=== PATIENT | female | born 1995 | race Two or more races ===

== ENCOUNTER 2023-01-26 16:29 | Emergency (ER) | payer MEDICAID, OTHER ==
[~2023-01-26] VITALS: Ht 170.2 cm; Wt 191.0 kg
[2023-01-26] MEDS ORDERED: DexAMETHasone SOD PHOS 10MG/1ML VIAL INJ IM ONE (18:30)
[2023-01-26] MEDS ORDERED: KETOROLAC TROMETH 60MG/2ML VIAL IM ONE (18:30)
[2023-01-26] MEDS ORDERED: IBUP1TAB5 PO (18:34)
[2023-01-26] MEDS ORDERED: CYCL-839 PO (18:34)
[2023-01-26 18:52] VITALS: BP 135/76; PULSE 88; RESP 18; TEMP 97.9; O2SAT 94
== END 2023-01-26 19:05 | disposition home or self-care (01) ==
LOC: ER 16:29
DX: S76.012A Strain of muscle, fascia and tendon of left hip, initial encounter (principal); Z79.1 Long term (current) use of non-steroidal anti-inflammatories (NSAID); Z79.899 Other long term (current) drug therapy; X58.XXXA Exposure to other specified factors, initial encounter; Y93.89 Activity, other specified; Y92.89 Other specified places as the place of occurrence of the external cause; Y99.8 Other external cause status
CPT/HCPCS: 73502; 93971; 96372; 99285; J1100; J1885

== ENCOUNTER 2023-10-23 18:53 | Emergency (ER) | payer MEDICAID ==
[~2023-10-23] VITALS: Ht 170.2 cm; Wt 183.5 kg
[~2023-10-23 18:53] MED LIST: CYCL-839 PO; IBUP1TAB5 PO
[2023-10-23 19:55] VITALS: BP 134/85; PULSE 117; RESP 18; O2SAT 95
[2023-10-23] MEDS ORDERED: AMOX875T4 PO (23:32)
[2023-10-23] MEDS ORDERED: ACET500T58 PO (23:32)
[2023-10-23] MEDS: ACETAMINOPHEN 325 MG TAB PO ONE (23:33)
[2023-10-23 23:52] LABS: Urine Bacteria FEW /hpf (None Seen); Urine Blood 3+ /uL (Negative); Urine Clarity Turbid (Clear); Urine Color Colorless (Yellow); Urine Protein, UAD Negative (Negative); Urine Specific Gravity 1.005 (1.001-1.035); Urine Urobilinogen Normal (Negative); Urine WBC 2 /hpf (0 - 5)
== END 2023-10-24 00:03 | disposition home or self-care (01) ==
LOC: ER 18:53
DX: J01.90 Acute sinusitis, unspecified (principal); R51.9 Headache, unspecified; E66.01 Morbid (severe) obesity due to excess calories; Z68.44 Body mass index [BMI] 60.0-69.9, adult
CPT/HCPCS: 81001; 81025

== ENCOUNTER 2025-03-06 11:33 | Emergency (ER) | payer MEDICAID ==
[~2025-03-06] VITALS: Ht 170.2 cm; Wt 187.8 kg
[~2025-03-06 11:33] MED LIST changes: +ACET500T58 PO; +AMOX875T4 PO
--- NOTE | 2025-03-06 14:24 | ED.PDOC ---
Musculoskeletal HPI Comments A 30 YEAR OLD FEMALE PRESENTS TO THE ED WITH COMPLAINT OF LEFT ARM SORENESS THAT STARTED 3-4 DAYS AGO. PATIENT REPORTS CARRYING HER NIECE FREQUENTLY FEELING SIMILAR SORENESS AFTER BUT WOULD SUBSIDE THE SAME DAY. PATIENT HAS NO SWELLING, ERYTHEMA, RECENT INJURIES OR FALLS PERTAINING TO PAIN. PATIENT DENIES FEVER, CHILLS, SHORTNESS OF BREATH, CHEST PAIN, ABDOMINAL PAIN, NAUSEA, VOMITING, HEADACHE, OR OTHER COMPLAINTS. NO OTHER SYMPTOMS OR MODIFYING FACTORS AT THIS TIME. PATIENT IS ALERT, ORIENTED X 4, AND HAS STEADY GAIT. Chief Complaint: Upper Extremity Time Seen by MD: 14:15 Primary Care Provider: AALIYAH Reviewed Notes: Nurses Notes, Medications, Allergies Allergies: Coded Allergies: NO KNOWN ALLERGIES (Unverified , 01/26/23) Home Meds Active Scripts Acetaminophen (Acetaminophen) 500 Mg Tab, 500 MG PO Q4HPRN, #30 TAB 0 Refills Prov:MATT GOOD 10/23/23 Amoxicillin & Pot Clavulanate (Amoxicillin/Potassium Cla) 875 Mg Tab, 1 TAB PO BID for 7 Days, #14 TAB 0 Refills Prov:MATT GOOD 10/23/23 Cyclobenzaprine Hcl (Cyclobenzaprine Hcl) 10 Mg Tab, 1 TAB PO Q8HR, #15 TAB as needed for muscle spasm Prov:KAYLA ROBERTSON NP 01/26/23 Ibuprofen Micronized (Ibuprofen) 600 Mg Tab, 1 TAB PO Q6HR, #20 TAB as needed for pain Prov:KAYLA ROBERTSON NP 01/26/23 Information Source: Patient Mode of Arrival: Ambulatory Location: Left Extremity Location: Arm Timing: Days Severity: Moderate Pain: Moderate Hand Dominance: Right Circumstances: Spontaneous Onset of Symptoms: Spontaneous Symptoms: Pain DVT Risk Factors: NONE Last Tetanus: UTD Associated signs and symptoms: Arm pain, Forearm pain Past Medical History PAST MEDICAL HISTORY: Anxiety Surgical History: Denies all surgeries PALLETISER OPERATOR History: No Pertinent PALLETISER OPERATOR History Family History Family History: Unknown Social History Smoker: Non-Smoker Alcohol: Denies ETOH Use Drugs: Denies Drug Use Lives In: Home Constitutional: denies: chills, diaphoresis, fatigue, fever, malaise, sweats, weakness, others EENTM: denies: blurred vision, double vision, ear bleeding, ear discharge, ear drainage, ear pain, ear ringing, eye pain, eye redness, hearing loss, mouth pain, mouth swelling, nasal discharge, nose bleeding, nose congestion, nose pain, photophobia, tearing, throat pain, throat swelling, voice changes, others Respiratory: denies: cough, hemoptysis, orthopnea, SOB at rest, shortness of breath, SOB with excertion, stridor, wheezing, others Cardiovascular: denies: chest pain, dizzy spells, diaphoresis, Dyspnea on exertion, edema, irregular heart beat, left arm pain, lightheadedness, palpitations, PND, syncope, others Gastrointestinal: denies: abdomen distended, abdominal pain, blood streaked bowels, constipated, diarrhea, dysphagia, difficulty swallowing, hematemesis, melena, nausea, poor appetite, poor fluid intake, rectal bleeding, rectal pain, vomiting, others Genitourinary: denies: abnormal vagina bleeding, burning, dyspareunia, dysuria, flank pain, frequency, hematuria, incontinence, pain, , vagina discharge, urgency, others Neurological: denies: dizziness, fainting, headache, left sided numbness, left sided weakness, numbness, paresthesia, pre-existing deficit, right sided numbness, right sided weakness, seizure, speech problems, tingling, tremors, weakness, others Musculoskeletal: reports: muscle pain, others (LEFT ARM PAIN ); denies: back pain, gout, joint pain, joint swelling, muscle stiffness, neck pain Integumetry: denies: bruises, change in color, change in hair/nails, dryness, laceration, lesions, lumps, rash, wounds, others Allergic/Immunocompromised: denies: Difficulty Healing, Frequent Infections, Hives, Itching, others Hematologic/Lymphatic: denies: anemia, blood clots, easy bleeding, easy bruising, swollen glands, others Endocrine: denies: excessive hunger, excessive sweating, excessive thirst, excessive urination, flushing, intolerance to cold, intolerance to heat, unexplained weight gain, unexplained weight loss, others Psychiatric: denies: anxiety, bipolar disorder, depression, hopeless, panic disorder, schizophrenia, sleepless, suicidal, others All Other Systems: Reviewed and Negative Physical Exam General Appearance: No Apparent Distress, Obese HEENT: Normal ENT Inspection, PERRL/EOMI, Pharynx Normal, TMs Normal Neck: Full Range of Motion, Non-Tender, Normal, Normal Inspection Respiratory: Chest Non-Tender, Lungs Clear, No Accessory Muscle Use, No Respiratory Distress, Normal Breath Sounds Cardiovascular: No Edema, No JVD, No Murmur, No Gallop, Normal Peripheral Pulses, Regular Rate/Rhythm Breast Exam: Deferred Gastrointestinal: No Organomegaly, Non Tender, No Pulsatile Mass, Normal Bowel Sounds, Soft Genitalia: Deferred Pelvic: Deferred Rectal: Deferred Extremities: No calf tenderness, Normal capillary refill, Normal inspection, Normal range of motion, No pedal edema, Tender (AND TENDERNESS ON LEFT UPPER EXTREMITY, NO BONY TENDERNESS, SWELLING AND DVT SIGNS. NORMAL ROM. ) Musculoskeletal : Apperance: Normal Neurologic: Alert, supervisor extruding department II-XII nml as Tested, No Motor Deficits, Normal Affect, Normal Mood, No Sensory Deficits Cerebellar Function: Normal Reflexes: Normal Skin: Dry, Normal Color, Warm Peripheral Pulses: 2+ carotid (R), 2+ carotid (L), 2+ Radial (R), 2+ Radial (L) Lymphatic: No Adenopathy Was a procedure done? Was a procedure done?: No EKG EKG : Pulse Rate (adult): 82 Cardiac Rhythm: NSR Differential Diagnosis EXT Differential Diagnosis: Deep Vein Thrombosis, Sprain, Strain, Bursitis X-Ray, Labs, Meds, VS Vital Signs Date Time Temp Pulse Resp B/P (MAP) Pulse Ox O2 Delivery O2 Flow Rate FiO2 03/06/25 16:17 82 03/06/25 14:49 84 16 98 Room Air 03/06/25 14:49 98.0 84 16 147/82 (103) 98 98.0 03/06/25 11:46 98.0 95 17 151/98 96 98.0 [place] [address] Ph: [phone] DIAGNOSTIC IMAGING Diagnostic Imaging Report : [id number] Signed PATIENT: JOE DASH ACCT: [id number] UNIT: [id number] : 1995 LOC: ER ROOM / BED: / AGE / SEX: 30 / F ADM STATUS: REG ER SERVICE [id number] ORDERING PHYSICIAN: YAMILKA HERNANDEZ PROCEDURE(s): LUDVT - LT Upper DVT REASON: LEFT UPPER ARM PAIN ORDER NUMBER(s): [id number], ACCESSION NUMBER(s): [id number] Upper Extremity Venous Duplex Clinical History: LEFT UPPER ARM PAIN Comparison: US LT LOWER DVT on DOS: 01/26/23 Technique: Duplex Doppler evaluation of the venous system of the LEFT lower neck and upper extremity including color Doppler and spectral/pulsed waveform analysis was performed. Findings: The internal jugular vein demonstrates appropriate compressibility and waveform variability. The subclavian vein is patent on color Doppler evaluation without intraluminal thrombus and demonstrates waveform variability. The visualized portion of the brachiocephalic vein is patent on color Doppler evaluation without intraluminal thrombus and demonstrates waveform variability. The axillary vein demonstrates appropriate compressibility and waveform variability. The brachial veins demonstrate appropriate compressibility and patency on Dop pler evaluation. The basilic vein demonstrates appropriate compressibility and patency on Doppler evaluation. The cephalic vein demonstrates appropriate compressibility and patency on Doppler evaluation. Impression: 1. No venous thrombus identified in the LEFT upper extremity vessels evaluated above. 2. If clinical concern/symptoms persist or worsen, short-interval follow-up radha barraza is suggested. ATED BY: GÉNESIS BONILLA Jr., DO DICTATED DATE/TIME: 03/06/25 154 SIGNED BY: GÉNESIS BONILLA Jr., SIGNED DATE/TIME: 03/06/251543 CC: X-Ray, Labs, Meds, VS Comment EXTERNAL MEDICAL RECORDS REVIEWED: [NONE] INDEPENDENT HISTORIANS: [NONE] SOCIAL DETERMINANTS OF HEALTH: [NONE] LABS ORDERED: NONE REVIEWED AND INTERPRETED RESULTS: NONE IMAGING ORDERED: US OF THE LEFT ARM TREATMENTS ORDERED: PROCEDURES PERFORMED: NONE CRITICAL CARE TIME: NONE I HAVE DISCUSSED THE PATIENT WITH THE ATTENDING PHYSICIAN, , SHE AGREES WITH THE PATIENT'S PLAN OF CARE AND DISPOSITION. BASED ON HISTORY OF PRESENT ILLNESS, AND PHYSICAL EXAM, PATIENT WILL BE DISCHARGED HOME SHARED DECISION MAKING: DISCUSSED WITH PATIENT THAT THEIR WORKUP WAS NORMAL. PATIENT INSTRUCTED TO FOLLOW UP WITH PRIMARY CARE PROVIDER IN 1-2 DAYS FOR RE- EVALUATION OF SYMPTOMS. PATIENT VERBALIZES UNDERSTANDING TO RETURN TO ED FOR NEW OR WORSENING SYMPTOMS OR IF FOLLOW UP WITH PCP CANNOT BE OBTAINED. PATIENT FEELS COMFORTABLE GOING HOME AT THIS TIME. ALL QUESTIONS ADDRESSED AT TIME OF DISCHARGE. Time of 1ST Reevaluation: 16:11 Reevaluation 1ST: Improved Patient Education/Counseling: Diagnosis, Treatment, Prognosis Family Education/Counseling: Diagnosis, Treatment, No Family Present Medical Screening: No EMC Exist At This Time Departure 1 Departure Time of Disposition: 16:22 Impression: Primary Impression: Muscle strain of left upper extremity Qualified Codes: S46.912A - Strain of unspecified muscle, fascia and tendon at shoulder and upper arm level, left arm, initial encounter Disposition: HOME / SELF CARE / HOMELESS Condition: Stable Additional Instructions: FOLLOW-UP WITH PCP IN 1 TO 2 DAYS. TAKE MEDICATIONS PRESCRIBED. RETURN TO ED FOR ANY NEW OR WORSENING SYMPTOMS. e-Prescriptions Ibuprofen (Ibuprofen) 800 Mg Tab 1 TAB PO TID, #30 TAB Prov: YAMILKA HERNANDEZ 03/06/25 Discharged With: Self Critical Care Note Critical Care Time?: No Stability Stability form required: No I personally scribed for YAMILKA HERNANDEZ ([email or web address]) on 03/06/25 at 14:24. Electronically submitted by Noy Marie ([facility]). I personally scribed for YAMILKA HERNANDEZ ([email or web address]) on 03/06/25 at 16:13. Electronically submitted by Noy Marie ([email or web address]). I personally scribed for YAMILKA HERNANDEZ ([email or web address]) on 03/06/25 at 16:17. Electronically submitted by Noy Marie ([facility]). YAMILKA HERNANDEZ Mar 06, 2025 14:24
[2025-03-06 14:49] VITALS: BP 147/82; RESP 16; TEMP 98; O2SAT 98
--- NOTE | 2025-03-06 15:46 | DVH ---
Upper Extremity Venous Duplex Clinical History: LEFT UPPER ARM PAIN Comparison: US LT LOWER DVT on DOS: 01/26/23 Technique: Duplex Doppler evaluation of the venous system of the LEFT lower neck and upper extremity including c olor Doppler and spectral/pulsed waveform analysis was performed. Findings: The internal jugular vein demonstrates appropriate compressibility and waveform variability. The subclavian vein is patent on color Doppler evaluation without intraluminal thrombus and demonstra matthew waveform variability. The visualized portion of the brachiocephalic vein is patent on color Doppler evaluation without intr aluminal thrombus and demonstrates waveform variability. The axillary vein demonstrates appropriate compressibility and waveform variability. The brachial veins demonstrate appropriate compressibility and patency on Doppler evaluation. The basilic vein demonstrates appropriate compressibility and patency on Doppler evaluation. The cephalic vein demonstrates appropriate compressibility and patency on Doppler evaluation. Impression: 1. No venous thrombus identified in the LEFT upper extremity vessels evaluated above. 2. If clinical concern/symptoms persist or worsen, short-interval follow-up study is suggested.
[2025-03-06 16:17] VITALS: PULSE 82
[2025-03-06] MEDS ORDERED: IBUP-1456 PO (16:22)
--- NOTE | 2025-03-06 18:53 | ECG ---
[facility] Test Date: 2025-03-06 Test Time: 16:13:41 Pat Name: JOE DASH Department: ED Room: Gender: F Instructional Design Technologist: KEVON : 1995 Requested By: YAMILKA HERNANDEZ Order Number: [id number] Reading MD: Ti Pineda Measurements Intervals [place] Rate: 82 P: 54 [place]: 168 QRS: 69 QRSD: 111 T: 24 QT: 375 QTc: 438 Interpretive Statements Sinus rhythm Low voltage, precordial leads Baseline wander in lead(s) II,III,aVF Electronically Signed On 03-07-2025 20:38:26 PDT by Ti Pineda Please click the below link to view image of tracing.
== END 2025-03-06 16:25 | disposition home or self-care (01) ==
LOC: ER 11:33
DX: S46.912A Strain of unspecified muscle, fascia and tendon at shoulder and upper arm level, left arm, initial encounter (principal); F41.9 Anxiety disorder, unspecified; X58.XXXA Exposure to other specified factors, initial encounter; Y93.89 Activity, other specified; Y92.89 Other specified places as the place of occurrence of the external cause; Y99.8 Other external cause status
CPT/HCPCS: 93005; 93971